=== PATIENT | female | born 1960 | race American Indian/Alaskan Native ===

== ENCOUNTER 2021-11-14 12:58 | Emergency (ER) | payer BC ==
[2021-11-14 13:05] VITALS: BP 185/73
--- NOTE | 2021-11-14 16:18 | Ultrasound Report ---
LIMITED RUQ ABDOMINAL ULTRASOUND INDICATION: ruq, ABDOMINAL PAIN. COMPARISON: No relevant prior imaging study available. FINDINGS: Pancreas: Visualized portions show no significant abnormality. Abdominal Aorta: Mid abdominal aorta is obscured. The remainder of the aorta is unremarkable. IVC: No significant abnormality. Liver: The liver measures 20 cm in length. The liver is enlarged but no obvious parenchymal liver di sease or mass. Normal hepatopedal blood flow in the main portal vein. Gallbladder: Surgically absent. Bile ducts: No significant abnormality. Common bile duct measures 4 mm. Right kidney: No significant abnormality visualized. Free fluid: None. Additional Findings: None. IMPRESSION: Limited exam. There is mild hepatomegaly but no obvious parenchymal liver disease or focal mass. Cholecystectomy. No biliary dilatation.. Signer Name: Jayson Durant Jr, MD Signed: 11/14/2021 4:13 PM Workstation Name: [id number]
[2021-11-14 17:17] LABS: Hematocrit 41.2 % (30.3-42.9); Hemoglobin 13.9 gm/dl (10.1-14.3); Mean Corpuscular HGB Conc 34 % (30-34); Mean Corpuscular Volume 86 fl (79-97); Platelet Count 315 K/mm3 (140-440); Red Blood Count 4.78 M/mm3 (3.65-5.03); Red Cell Distribution Width 15.2 % (13.2-15.2)
[2021-11-14 17:50] LABS: INR 0.87 (0.87-1.13)
[2021-11-14 17:51] LABS: Partial Thromboplastin Time 31.7 Sec. (24.2-36.6)
[2021-11-14 18:04] LABS: Alanine Aminotransferase 27 units/L (7-56); Albumin 4.2 g/dL (3.9-5); BUN/Creatinine Ratio 24; Blood Urea Nitrogen 19 mg/dL (7-17); Calcium 9.3 mg/dL (8.4-10.2); Hemolysis Index 33
--- NOTE | 2021-11-14 18:17 | Emergency Department Report ---
ED Female HPI - General Chief complaint: Vaginal Bleeding Stated complaint: VAGINAL BLEED/ABDOMINAL PAIN Time Seen by Provider: 11/14/21 14:51 Source: patient, family, EMS Mode of arrival: Stretcher Limitations: No Limitations - History of Present Illness Initial comments: 61-year-old -[place] female with a history of insulin-dependent diabet es, complains of vaginal bleeding x1 day. Patient reports having crampy lower abdominal pain. Denies have any fever chills diarrhea vomiting. She admits to slight nausea. MD Complaint: vaginal bleeding -: Gradual, days(s) Radiation: suprapubic Severity: mild Quality: cramping Consistency: intermittent Improves with: none Worsens with: none Are you Now?: No Associated Symptoms: vaginal bleeding, nausea/vomiting - Related Data Previous Rx's Medication Instructions Recorded Last Taken Type HYDROcodone/APAP 5-325 [Reserve 1 each PO Q6HR PRN #10 tablet 11/14/21 Unknown Rx 5/325] Ondansetron (Nf) [Zofran TAB] 8 mg PO Q8HR PRN #10 tablet 11/14/21 Unknown Rx Allergies Allergy/AdvReac Type Severity Reaction Status Date / Time No Known Allergies Allergy Verified 11/14/21 13:06 ED Review of Systems ROS: Stated complaint: VAGINAL BLEED/ABDOMINAL PAIN Other details as noted in HPI Constitutional: denies: chills, fever Eyes: denies: eye pain, eye discharge, vision change ENT: denies: ear pain, throat pain Respiratory: denies: cough, shortness of breath, wheezing Cardiovascular: denies: chest pain, palpitations Endocrine: no symptoms reported Gastrointestinal: nausea. denies: abdominal pain, diarrhea Genitourinary: denies: urgency, dysuria, discharge Musculoskeletal: denies: back pain, joint swelling, arthralgia Skin: denies: rash, lesions Neurological: denies: headache, weakness, paresthesias Psychiatric: denies: anxiety, depression Hematological/Lymphatic: denies: easy bleeding, easy bruising ED Past Medical Hx - Past Medical History Hx Diabetes: Yes - Medications Home Medications: Home Medications Medication Instructions Recorded Confirmed Last Taken Type HYDROcodone/APAP 5-325 [Reserve 1 each PO Q6HR PRN #10 tablet 11/14/21 Unknown Rx 5/325] Ondansetron (Nf) [Zofran TAB] 8 mg PO Q8HR PRN #10 tablet 11/14/21 Unknown Rx ED Physical Exam - General Limitations: No Limitations General appearance: alert, in no apparent distress - Head Head exam: Present: atraumatic, normocephalic - Eye Eye exam: Present: normal appearance, PERRL - ENT ENT exam: Present: normal exam, normal orophraynx, mucous membranes moist - Neck Neck exam: Present: normal inspection - Respiratory Respiratory exam: Present: normal lung sounds bilaterally. Absent: respiratory distress - Cardiovascular Cardiovascular Exam: Present: regular rate, normal rhythm. Absent: systolic murmur, diastolic murmur, rubs, gallop - GI/Abdominal GI/Abdominal exam: Present: soft, guarding, normal bowel sounds. Absent: distended, tenderness - Extremities Exam Extremities exam: Present: normal inspection - Back Exam Back exam: Present: normal inspection - Neurological Exam Neurological exam: Present: alert, oriented X3 - Psychiatric Psychiatric exam: Present: normal affect, normal mood - Skin Skin exam: Present: warm, dry, intact, normal color. Absent: rash ED Course Vital Signs 11/14/21 13:03 Temperature 98.2 F Pulse Rate 97 H Respiratory 18 Rate Blood Pressure 185/73 [Left] O2 Sat by Pulse 100 Oximetry ED Medical Decision Making - Lab Data Result diagrams: 11/14/21 16:17 11/14/21 16:17 Critical care attestation.: If time is entered above; I have spent that time in minutes in the direct care of this critically ill patient, excluding procedure time. ED Disposition Clinical Impression: Dysfunctional uterine bleeding Disposition: 01 HOME / SELF CARE / HOMELESS Is pt being admited?: No Does the pt Need Aspirin: No Condition: Stable Instructions: Abnormal Uterine Bleeding, Menorrhagia, [id number] Prescriptions: HYDROcodone/APAP 5-325 [Reserve 5/325] 1 each PO Q6HR PRN #10 tablet PRN Reason: Pain Ondansetron (Nf) [Zofran TAB] 8 mg PO Q8HR PRN #10 tablet PRN Reason: Nausea Referrals: DERREK TO MD [Primary Care Provider] - 3-5 Days
== END 2021-11-14 19:10 | disposition home or self-care (01) ==
LOC: ED 12:58
DX: N93.9 Abnormal uterine and vaginal bleeding, unspecified (principal)
CPT/HCPCS: 36415; 76705; 80053; 85027; 85610; 85730; 99284